=== PATIENT | female | born 1935 | race Caucasian/White ===

== ENCOUNTER 2017-02-08 05:53 | Day surgery (SDC) | payer MEDICARE ==
[2017-02-08] MEDS ORDERED: Lactated Ringers 1,000 ML IV SCH (06:30)
[2017-02-08] MEDS ORDERED: Versed 2 MG/2 ML Injection IV ONE (08:00)
[2017-02-08] MEDS ORDERED: DIPRIVAN 200 MG/20 ML IV ONE (08:00)
[2017-02-08] MEDS ORDERED: Lactated Ringers 1,000 ML IV ONE (08:12)
--- NOTE | 2017-02-08 08:29 | OP ---
SURGERY DATE/TIME: 02/08/2017729 PREOPERATIVE DIAGNOSIS: Abdominal pain and change in bowel habits. POSTOPERATIVE DIAGNOSES: 1) Sigmoid colon polyp. 2) Moderate to severe sigmoid diverticulosis. 3) Tortuous colon. PROCEDURE: Colonoscopy with polypectomy. SURGEON: Dr. Mccall. ANESTHESIA: Medications given by anesthesia department. HISTORY: The patient is a 81 year-old white female presenting now for complaints of abdominal pain and change in bowel habits being pencil-thin with abdominal pain and tenseness. The patient reports that she has a family history of colon cancer in her father. She previously had a colonoscopy many years ago that was essentially negative according to her. The patient was felt the need to have endoscopic evaluation. She was appraised of the risks of the procedure including the risk of perforation, phlebitis, untoward reaction to medication, bleeding and missed lesions. The patient verbalized her understanding and desired to have the procedure performed. DESCRIPTION OF PROCEDURE: The patient was given the medications by the anesthesia department. She had continuous pulse oximetry, ECG monitoring, intermittent blood pressure monitoring and tidal CO2 monitoring during the examination. She was placed in the left lateral decubitus position. A digital rectal examination was performed and revealed normal anal sphincter tone and no masses. The flexible Olympus pediatric colonoscope was used to intubate the rectum. A view of the colon was developed sequentially to the cecum. Upon insertion and withdrawal, including a retroflex view in the rectum, there was noted moderate sigmoid diverticulosis and a pedunculated polyp measuring 1 x 2 cm which was removed using polypectomy snare however we were unable to retrieve the polyp as it was lost in stool in the tortuous left side of the colon. However, we were able to biopsy the area before and the base of it afterwards. It appeared to be most likely tubular adenoma. The scope was removed from the patient who tolerated the procedure well and was sent back to OP recovery in good condition. The prep was noted to be fair.
[2017-02-08 09:38] VITALS: BP 128/65; PULSE 51; O2SAT 97
== END 2017-02-08 09:49 | disposition home or self-care (01) ==
LOC: SDC 05:53
PROVIDERS: ATTEND Family Medicine
PROC: 0DBN8ZX Excision of Sigmoid Colon, Via Natural or Artificial Opening Endoscopic, Diagnostic (ICD-10-PCS; principal; 2017-02-08)
DX: D12.5 Benign neoplasm of sigmoid colon (principal); K57.30 Diverticulosis of large intestine without perforation or abscess without bleeding; Z80.0 Family history of malignant neoplasm of digestive organs
CPT/HCPCS: 00810; 36415; 88305; 99100; J2250; J2704

== ENCOUNTER 2019-02-12 05:37 | Day surgery (SDC) | payer MEDICARE ==
[2019-02-12] MEDS ORDERED: Lactated Ringers 1,000 ML IV SCH (06:00)
[2019-02-12] MEDS ORDERED: Ketamine HCl 50 MG/ML ONE (06:58)
[2019-02-12] MEDS ORDERED: DIPRIVAN 200 MG/20 ML IV ONE ×2 (06:58→07:27)
[2019-02-12] MEDS ORDERED: ROBINUL ONE (07:06)
--- NOTE | 2019-02-12 08:23 | OP ---
SURGERY DATE/TIME: 02/12/2019 0705 PREOPERATIVE DIAGNOSIS: History of colon polyps. POSTOPERATIVE DIAGNOSIS: Severe sigmoid diverticulosis. PROCEDURE: Colonoscopy. SURGEON: Dr. Mccall. ANESTHESIA: MAC. Medications given by anesthesia department. HISTORY: The patient is an 83 year-old white female who reports two years ago she had colon polyps removed. She is here now for surveillance examination. She was reappraised of the risks of the procedure including the risk of perforation, phlebitis, untoward reaction to medication, bleeding and missed lesions. The patient verbalized her understanding and desired to have the procedure performed. DESCRIPTION OF PROCEDURE: The patient was given the medications by the anesthesia department. She had continuous pulse oximetry, ECG monitoring, intermittent blood pressure monitoring and tidal CO2 monitoring during the examination. She was placed in the left lateral decubitus position. A digital rectal examination was performed and revealed normal anal sphincter tone and no masses. The flexible Olympus pediatric colonoscope was used to intubate the rectum. A view of the colon was developed sequentially to the cecum. Upon insertion and withdrawal was noted severe sigmoid diverticulosis. No other no mucosal lesions being encountered, the scope was removed from the patient who tolerated the procedure well and was sent back to OP recovery in good condition. The prep was noted to be poor.
[2019-02-12 08:34] VITALS: BP 148/71; PULSE 60; O2SAT 93
== END 2019-02-12 08:47 | disposition home or self-care (01) ==
LOC: SDC 05:37
PROVIDERS: ATTEND Family Medicine
DX: Z09 Encounter for follow-up examination after completed treatment for conditions other than malignant neoplasm (principal); Z86.010 Personal history of colon polyps; K57.30 Diverticulosis of large intestine without perforation or abscess without bleeding
CPT/HCPCS: 99100; J2704